=== PATIENT | female | born 2000 | race Caucasian/White ===

== ENCOUNTER 2024-06-17 08:02 | Outpatient (CLI) | payer BC, SELFPAY ==
--- NOTE | 2024-06-17 08:15 | CRLHL7_ITS ---
For Patients: As a result of the Century Cures Act, medical imaging exams and procedure reports are released immediately into your electronic medical record. You may view this report before your referring provider. If you have questions, please contact your health care provider. INDICATION: First trimester scan, establish dates. COMPARISON: None. TECHNIQUE: Real-time jovel-scale imaging of the pelvis was performed. FINDINGS: Sonographic imaging demonstrates a single living intrauterine gestation. The embryo demonstrates a regular cardiac rate measuring 157 beats per minute. The embryo`s crown-rump length measurement of 1.6 cm corresponds to a gestational age of 8 weeks 0 days with a sonographic due date of 01/27/2025. There is a normal-appearing yolk sac. There are no gross abnormalities noted within the embryo at this early state of development. The gestational sac has a normal appearance. There is no evidence of a perigestational hemorrhage. The amount of fluid within the sac appears appropriate for gestational age. The cervix is closed. The myometrium appears normal. Simple cyst right ovary measures 3.9 x 1.7 x 2.3 cm. Normal left ovary. There are no suspicious fluid collections noted in the cul-de-sac. IMPRESSION: Single living intrauterine with sonographic gestational age 8 weeks 0 days and sonographic due date of 01/27/2025. Simple right ovarian cyst measures 3.9 x 1.7 x 2.3 cm. Dictated by Michael Burgos MD @ 06/17/2024 9:07:54 AM (Electronically Signed)
== END 2024-06-17 08:03 | disposition home or self-care (01) ==
LOC: US 08:02
PROVIDERS: Visit Provider Registered Nurse
DX: Z34.91 Encounter for supervision of normal pregnancy, unspecified, first trimester (principal); Z3A.01 Less than 8 weeks gestation of pregnancy
CPT/HCPCS: 76817; 86592; 86703; 86704; 86706; 86762; 86787; 86803; 86850; 86900; 86901; 87086; 87340; 87491; 87591

== ENCOUNTER 2024-08-19 16:59 | Emergency (ER) | payer BC, SELFPAY ==
[2024-08-19 17:17] VITALS: BP 101/69; PULSE 71; RESP 18; TEMP 36.6; O2SAT 100; BMI 19.9
[2024-08-19 17:30] LABS: Appearance Urine Clear (Clear); Bilirubin Urine Negative (Negative); Blood Urine Negative (Negative); Color Urine Light yellow (Yellow); Glucose Urine Negative (Negative); Ketones Urine Negative (Negative); Leukocyte Esterase Urine Negative (Negative); Nitrite Urine Negative (Negative); Protein Urine Negative (Negative); Specific Gravity Urine <= 1.005 (1.000-1.030); Urobilinogen Urine 0.2 (0.2-1.0); pH Urine 6.5 (5.0-8.5)
[2024-08-19 17:35] LABS: RBC Urine 0-2 (0-2); Squamous Epithelial Cell Urine Few (None-Few); WBC Urine 0-2 (0-5)
--- NOTE | 2024-08-19 17:47 | ED_ITS ---
HPI - Abdominal Pain General Date Seen: 08/19/24 Chief Complaint: Abdominal Pain Stated Complaint: 16 weeks , lower back/stomach pain Time Seen by Provider: 08/19/24 17:24 Source: patient Mode of arrival: ambulatory Limitations: no limitations History of Present Illness HPI narrative: Patient is a 24-year-old female currently 16 weeks with a normal intrauterine presenting to the emergency department for abdominal pain. She states states she has been not feeling well for the past couple days then notice today she has been having lower abdominal and low back discomfort. Describes as an achy sensation that is constant. Seems worse on her left lower abdomen than the right. Has had no associated fevers or chills. Does feel like she is urinating more frequently was eating and drinking without issues. Denies any dysuria. Has not noticed any vaginal bleeding. Has been having normal bowel movements. Is not having any associated nausea or vomiting. Denies chest pain, shortness of breath, lightheadedness, dizziness, weakness, headache, vision changes. No other concerns noted at this time. Denies having symptoms like this before. No previous abdominal surgeries. No other concerns noted Related Data Home Medications ?Medication ?Instructions ?Recorded ?Confirmed citalopram 30 mg capsule 30 mg PO QDAY 05/31/24 08/10/24 clindamycin phosphate 1 % topical 1 applic topical BID 05/31/24 08/10/24 solution cholecalciferol (vitamin D3) 10 10 mcg PO QDAY 06/17/24 08/10/24 mcg (400 unit) capsule docosahexaenoic acid 200 mg mg PO 06/17/24 08/10/24 capsule ( DHA) albuterol sulfate 2.5 mg/3 mL mg inhalation Q4H PRN wheezing 08/10/24 08/10/24 (0.083 %) solution for nebulization Allergies Allergy/AdvReac Type Severity Reaction Status Date / Time bee venom protein (honey bee) Allergy Severe Anaphylaxis Verified 08/10/24 14:33 Review of Systems Status of ROS Reports: 10 or more systems reviewed and unremarkable except as noted in History and below [facility] Medical History (Updated 08/19/24 @ 19:22 by Lisandro Lennon DO) Depression ?F32.A - Depression, unspecified (ICD-10) Social History (Updated 06/17/24 @ 10:01 by YAYA Vega 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 What is your current living situation?: I presently have a place to live Problems where you live: no known problems In the past 12 months, utilities in danger of being shut off: no In past 12 months, lack of transportation kept you from medical appts, meetings, work, or getting things needed for daily living: no In the past 12 mos, have been you worried that your food would run out before you had money to buy more?: never true In the past 12 mos, the food you bought just didn't last and you didn't have money to buy more?: never true Smoking Status: Never smoker How often do you have a drink containing alcohol: never AUDIT-C Alcohol total score: 0 Non-prescribed substance use: denies use How often does anyone, including family, friends and others, physically hurt you : never How often does anyone, including family, friends and others, insult or talk down to you: never How often does anyone, including family, friends and others, threaten you with harm: never How often does anyone, including family, friends and others, scream or curse at you: never Little interest or pleasure in doing things: not at all Feeling down, depressed, or hopeless: not at all Exam Narrative: Exam Narrative: Const: Well-nourished, Well-developed, in mild distress Eyes: PERRL, no conjunctival injection, and symmetrical lids HENT: Atraumatic external nose and ears. Moist mucous membranes. Neck: Symmetric, trachea midline, No thyromegaly. CVS: RRR, No murmurs or gallops. Peripheral pulses 2+ and equal in all extremities RESP: Unlabored respiratory effort. Clear to auscultation bilaterally. GI: Mild lower abdominal tenderness across the abdomen, Nondistended, No rebound or guarding. MSK:Extremities w/o deformity, Normal Active ROM Skin: Warm, Dry. No rashes or lesions. Neuro: Normal Muscle tone, No focal neurological deficits. Psych: Awake, Alert, & Oriented x3. Appropriate mood and affect. Const: Vital Signs, click to edit/add: Vital Signs - 24 hr 08/19/24 17:17 Temperature 97.8 F Pulse Rate [Pulse Oximeter] 71 Respiratory Rate 18 Blood Pressure [Ri ght Upper Arm] 101/69 Pulse Oximetry 100 Oxygen Delivery Me thod Room Air Course Vital Signs Vital signs: Initial Vital Signs Temperature 97.8 F 08/19/24 17:17 Temperature Source Temporal Artery Scan 08/19/24 17:17 Pulse Rate 71 08/19/24 17:17 Pulse Rhythm Regular 08/19/24 17:17 Respiratory Rate 18 08/19/24 17:17 Blood Pressure 101/69 08/19/24 17:17 Blood Pressure Mean 79 08/19/24 17:17 Blood Pressure Position Supine 08/19/24 17:17 Pulse Oximetry 100 08/19/24 17:17 Oxygen Delivery Method Room Air 08/19/24 17:17 Vital Signs Temperature 97.8 F 08/19/24 17:17 Pulse Rate 71 08/19/24 17:17 Respiratory Rate 18 08/19/24 17:17 Blood Pressure 101/69 08/19/24 17:17 Pulse Oximetry 100 08/19/24 17:17 Oxygen Delivery Method Room Air 08/19/24 17:17 Temperature 97.8 F 08/19/24 17:17 Pulse Rate 71 08/19/24 17:17 Respiratory Rate 18 08/19/24 17:17 Blood Pressure 101/69 08/19/24 17:17 Pulse Oximetry 100 08/19/24 17:17 Oxygen Delivery Method Room Air 08/19/24 17:17 MDM - Abdominal Pain MDM Narrative Medical decision making narrative: Patient is 24-year-old female presenting for lower abdominal and low back pain. Symptoms are relatively mild she is not having any nausea or vomiting. Is not having any urinary retention or incontinence. She is otherwise feeling well at this time with no other symptoms other than this pain. Differential could include appendicitis, gastroenteritis, colitis, UTI. Due to location much less likely to be gallbladder disease or pancreatitis. As she is 16 weeks this could also just be some stretching of the ligaments causing her pain. Will hold off any imaging considering the and was do labs initially and re-evaluate after that. Labs will be included CBC, CMP, urinalysis, COVID/flu/RSV. Lab work returned showing no concerning abnormalities. Viral swabs were negative. Unsure exactly was causing her pain at this time but I am not seeing any concerning findings. With the patient he she seems much to young to have diverticulitis and is in pretty minimal pain so ovarian torsion seems unlikely. At this point I am comfortable discharging her home. Symptoms male just be from stretching of the ligaments during her . She is agreeable for this plan a give her return precautions for if symptoms worsen. Lab Data Labs: Lab Results 08/19/24 08/19/24 08/19/24 Range/Units 16:00 17:20 17:50 WBC 8.80 (4.50-11.00) K/uL RBC 3.58 L (4.00-5.20) m/uL Hgb 10.8 L (12.0-16.0) gm/dL Hct 31.5 L (33.0-51.0) % MCV 88 (80-100) fL MCH 30 (26-34) pg MCHC 34 (32-36) gm/dL RDW Coeff of [place] 13.6 (11.5-15.5) % Plt Count 154 (140-440) K/uL Neut % (Auto) 67.1 (42.0-72.0) % Lymph % (Auto) 23.4 (20-44) % [place] % (Auto) 7.2 (0.0-11.0) % Eos % (Auto) 1.7 (0.0-7.0) % Baso % (Auto) 0.3 (0.0-3.0) % Neut # (Auto) 5.90 (1.7-7.0) K/uL Lymph # (Auto) 2.06 (0.90-2.90) K/uL [place] # (Auto) 0.60 (0.00-0.90) K/UL Eos # (Auto) 0.15 (0.00-0.50) K/uL Baso # (Auto) 0.03 (0.00-0.30) K/uL Abs Immat Gran (auto) 0.03 (0.00-0.30) K/uL Imm/Tot Granulo (auto) 0.3 % Sodium 131 L (135-149) mmol/L Potassium 3.6 (3.6-5.1) mmol/L Chloride 100 (96-114) mmol/L Carbon Dioxide 26 (20-32) mmol/L Anion Gap 5 L (7-15) mEq/L BUN 13 (5-24) mg/dL Creatinine 0.5 (0.5-1.5) mg/dL Estimated Creat Clear 167.72 Estimated GFR 134 ml/min Glucose 81 (60-115) mg/dL Calcium 8.8 (8.4-10.6) mg/dL Total Bilirubin 0.4 (0.1-1.5) mg/dL AST 20 (12-35) U/L ALT 12 (4-35) U/L Alkaline Phosphatase 35 L (40-150) U/L Total Protein 6.2 (6.0-8.3) g/dL Albumin 3.6 (3.3-5.0) g/dL Urine Color Light yellow (Yellow) Urine Appearance Clear (Clear) Urine pH 6.5 (5.0-8.5) Ur Specific [place] <= 1.005 (1.000-1.030) Urine Protein Negative (Negative) Urine Glucose (UA) Negative (Negative) Urine Ketones Negative (Negative) Urine Blood Negative (Negative) Urine Nitrite Negative (Negative) Urine Bilirubin Negative (Negative) Urine Urobilinogen 0.2 (0.2-1.0) Ur Leukocyte Esterase Negative (Negative) Urine RBC 0-2 (0-2) Urine WBC 0-2 (0-5) Ur Squamous Epith Cells Few (None-Few) Urine Bacteria None (None) SARS-CoV-2 (PCR) Negative SARS-CoV-2 (Negative) Influenza Type A (PCR) Negative PCR FLU A (Negative) Influenza Type B (PCR) Negative PCR FLU B (Negative) RSV (PCR) Negative PCR RSV (Negative) Discharge Plan Discharge Clinical Impression: Abdominal pain Qualifiers: Abdominal location: lower abdomen, unspecified Qualified Code(s): R10.30 - Lower abdominal pain, unspecified Instructions: Abdominal Pain (ED) Additional Instructions: At this time I cannot say for certain what is causing your pain but lab work is reassuring. If symptoms started getting worse return to emergency department for re-evaluation and possible imaging at that time. Try taking Tylenol for pain Prescriptions: No Action DHA 200 mg capsule PO cholecalciferol (vitamin D3) 10 mcg (400 unit) capsule 10 mcg PO QDAY citalopram 30 mg capsule 30 mg PO QDAY clindamycin phosphate 1 % solution 1 applic topical BID albuterol sulfate 2.5 mg /3 mL (0.083 %) solution for nebulization inhalation Q4H PRN (Reason: wheezing) Follow Up/Referrals: Provider,Not a Local [Primary Care Provider] - Stand Alone Forms: [employer] Info Instructions
[2024-08-19 18:09] LABS: Basophils Absolute Auto 0.03 K/uL (0.00-0.30); Basophils Percent Auto 0.3 % (0.0-3.0); Eosinophils Absolute Auto 0.15 K/uL (0.00-0.50); Eosinophils Percent Auto 1.7 % (0.0-7.0); Hematocrit 31.5 % (33.0-51.0); Hemoglobin* 10.8 gm/dL (12.0-16.0); Immature Granulocytes Abs Auto 0.03 K/uL (0.00-0.30); Immature Granulocytes Pct Auto 0.3 %; Lymphocytes Absolute Auto 2.06 K/uL (0.90-2.90); Lymphocytes Percent Auto 23.4 % (20-44); Mean Corpuscular HGB Conc 34 gm/dL (32-36); Mean Corpuscular Hemoglobin 30 pg (26-34); Mean Corpuscular Volume 88 fL (80-100); Monocytes Percent Auto 7.2 % (0.0-11.0); Neutrophils Percent Auto 67.1 % (42.0-72.0); Platelet Count* 154 K/uL (140-440); RDW Coefficient of Variation % 13.6 % (11.5-15.5); Red Blood Count 3.58 m/uL (4.00-5.20)
[2024-08-19 18:15] LABS: Slide Review Reflex No
[2024-08-19 18:46] LABS: PCR FLU A Negative PCR FLU A (Negative); PCR FLU B Negative PCR FLU B (Negative); PCR RSV Negative PCR RSV (Negative); SARS PCR* Negative SARS-CoV-2 (Negative)
[2024-08-19 19:06] LABS: Albumin* 3.6 g/dL (3.3-5.0)
[2024-08-19 19:07] LABS: Chloride* 100 mmol/L (96-114); Potassium* 3.6 mmol/L (3.6-5.1); Sodium* 131 mmol/L (135-149)
[2024-08-19 19:09] LABS: Anion Gap 5 mEq/L (7-15); Aspartate Amino Transferase* 20 U/L (12-35); Bilirubin Total* 0.4 mg/dL (0.1-1.5); Carbon Dioxide* 26 mmol/L (20-32); Creatinine* 0.5 mg/dL (0.5-1.5); Est. Creatinine Clearance* 167.72; Estimated Glomerular Filt Rate 134 ml/min
[2024-08-19 19:10] LABS: Alanine Aminotransferase* 12 U/L (4-35); Alkaline Phosphatase* 35 U/L (40-150); Blood Urea Nitrogen* 13 mg/dL (5-24); Calcium* 8.8 mg/dL (8.4-10.6); Glucose* 81 mg/dL (60-115); Total Protein* 6.2 g/dL (6.0-8.3)
== END 2024-08-19 19:29 | disposition home or self-care (01) ==
LOC: ED 17:54
PROVIDERS: Emergency Provider Student in an Organized Health Care Education/Training Program
DX: R10.30 Lower abdominal pain, unspecified (principal); Z3A.16 16 weeks gestation of pregnancy
CPT/HCPCS: 36415; 80053; 81001; 85025; 87631; 99282; 99283

== ENCOUNTER 2024-08-25 09:09 | Outpatient (CLI) | payer BC, SELFPAY | END 2024-08-25 09:10 | disposition home or self-care (01) | PROVIDERS: Visit Provider Obstetrics & Gynecology | DX: Z34.92 Encounter for supervision of normal pregnancy, unspecified, second trimester (principal); Z3A.17 17 weeks gestation of pregnancy | CPT/HCPCS: 80048; 84443 ==

== ENCOUNTER 2024-09-07 11:57 | Outpatient (CLI) | payer BC, SELFPAY ==
--- NOTE | 2024-09-07 12:15 | CRLHL7_ITS ---
For Patients: As a result of the Century Cures Act, medical imaging exams and procedure reports are released immediately into your electronic medical record. You may view this report before your referring provider. If you have questions, please contact your health care provider. HISTORY: anatomic survey. COMPARISON: None available of this gestation. TECHNIQUE: Ultrasound examination of the is performed with transabdominal technique. Transvaginal examination of the cervix and inferior placental margin is performed. FINDINGS: A single intrauterine gestation is seen in cephalic presentation with regular cardiac activity at 145 beats per minute. The placenta is posterior and is low lying, with the inferior placental margin located 0.7 centimeters from the internal os. Recommend follow-up ultrasound to exclude a low-lying placenta. The placental grade is 0 and the amniotic fluid volume is normal. Single deepest vertical pocket: Normal at 5.1 cm. Cervical length is normal at 4.5 centimeters with no sign of cervical dilatation. BPD: 4.7 cm 20 weeks 1 day HC: 17.3 cm 19 weeks 6 days AC: 14.8 cm 20 weeks 0 days. Sixty-sixth percentile FL: 3.2 cm 19 weeks 6 days The estimated age by ultrasound is 20 weeks 2 days, with an estimated date of delivery of 01/23/2025. This correlates well with the clinical age of 19 weeks 3 days. The ultrasound ratios are normal. The estimated weight is 320 grams which is at the 77th percentile based on the clinical dates. The anatomic survey demonstrates normal appearing intracranial structures with a normal septum pellucidum and normal cerebellum. The nuchal thickness is normal at 4 mm, and the lateral ventricle is normal in diameter at 5 mm. The upper lip, 4 chamber heart, left and right ventricular outflow tracts, diaphragm, stomach, cord insertion site, 3-vessel cord, kidneys, bladder and spine are normal in appearance. IMPRESSION: 1. Single intrauterine gestation in cephalic presentation with regular cardiac activity. 2. Estimated gestational age is 20 weeks 2 days. 3. The estimated weight is 320 grams which is at the 77th percentile based on the clinical dates. 4. Low-lying posterior placenta. Recommend follow-up ultrasound to exclude a persistent low lying placenta. Dictated by Farshad Mishra MD @ 09/09/2024 12:23:06 PM (Electronically Signed)
== END 2024-09-07 11:58 | disposition home or self-care (01) ==
LOC: US 11:57
PROVIDERS: Visit Provider Obstetrics & Gynecology
DX: Z34.92 Encounter for supervision of normal pregnancy, unspecified, second trimester (principal); Z3A.20 20 weeks gestation of pregnancy
CPT/HCPCS: 76805; 76817

== ENCOUNTER 2024-11-07 08:12 | Outpatient (CLI) | payer BC, SELFPAY ==
--- NOTE | 2024-11-07 08:15 | CRLHL7_ITS ---
For Patients: As a result of the Century Cures Act, medical imaging exams and procedure reports are released immediately into your electronic medical record. You may view this report before your referring provider. If you have questions, please contact your health care provider. OB BPP FOLLOWUP LIMITED, 11/07/2024 COMPARISON: 09/07/2024. CLINICAL HISTORY: Low-lying placenta. TECHNIQUE: Transabdominal. FINDINGS: Cervix: Visualized. Measurement: 3.4 cm. Positioning: Vertex. Amniotic Fluid: 6.1 cm. Placenta Technique: TA. Dopplers Heart Rate: 145 bpm. IMPRESSION: With transvaginal imaging, the posterior placenta is located 2.6 cm from the internal cervical os and the cervix is closed measuring 3.4 cm. Michael Burgos M.D. Diagnostic Radiologist [email or web address] Transcribed: 11:16 am DW/Dictated by: Michael Burgos MD @ 11/07/2024 9:22:00 AM (Electronically Signed)
== END 2024-11-07 08:13 | disposition home or self-care (01) ==
LOC: US 08:13
PROVIDERS: PCP Obstetrics & Gynecology; Visit Provider Obstetrics & Gynecology
DX: O44.40 Low lying placenta NOS or without hemorrhage, unspecified trimester (principal)
CPT/HCPCS: 76816; 76817; 86592; 86850; J2791

== ENCOUNTER 2024-11-20 21:15 | Outpatient (CLI) | payer BC, SELFPAY ==
[2024-11-20 21:37] VITALS: BP 110/61; PULSE 70; TEMP 36.5
--- NOTE | 2024-11-21 00:06 | PC.OBNST ---
NST Note NST Note Start: 11/20/24 21:19 Freq: ONCE Status: Active Protocol: Document 11/21/24 00:03 MMT (Rec: 11/21/24 00:05 MMT No Response) NST Note 1 Para (# of births) 0 EDC 01/29/25 Gestational Age In Weeks & Days 30 Weeks & 1 Days Patient Presented with Complaint(s) of Decreased movement,Other Other Complaints Pt stated she fell at 1900. Pt states she does not have any cramping/ctx, bleeding, or leakage of fluid. Pt did state on the phone prior to coming in that she feels her baby has not been moving as much as usual. Once the pt got here she stated that resolved. Reactive Yes Appropriate for Gestational Age Yes PIOTR Dawn Date 11/21/24 Reactive Yes Appropriate for Gestational Age Yes PIOTR Barcenas RN Date 11/21/24 OB NST charge Yes Complete NST Note via Write Note Yes The provider's electronic signature indicates the NST is reactive/appropriate for gestational age. *Note to provider: If an addendum is required, open the patient's chart and click on the note under the Nurse/Allied Health tab.
== END 2024-11-20 23:10 | disposition home or self-care (01) ==
LOC: OB OUT 21:15 → OB 21:15
PROVIDERS: PCP Obstetrics & Gynecology; Visit Provider Obstetrics & Gynecology
DX: O36.8130 Decreased fetal movements, third trimester, not applicable or unspecified (principal); Z3A.30 30 weeks gestation of pregnancy
CPT/HCPCS: 59025; G0463

== ENCOUNTER 2025-01-03 03:40 | Inpatient (IN) | payer BC, SELFPAY ==
[2025-01-03] VITALS (49 sets, daily range): BP systolic 89–127; BP diastolic 53–81; PULSE 71–113; RESP 16; TEMP 36.8–37.4; O2SAT 96–100; BMI 25.2
[2025-01-03 03:29] LABS: Amnisure Rom* POSITIVE
--- NOTE | 2025-01-03 03:52 | P.OBHP_ITS ---
OB - H&P: HPI Labor/Induction History of Present Illness Time Seen by Provider: 04:14 Date Seen: 01/03/25 Chief Complaint: Eva is a 24 year old 1 para 0 at 36 and 2/7 weeks gestation by LMP with NICANOR of 01/29/2025, who presents with pre term premature rupture of membranes at 1:40 a.m. today on 01/03/2025. [] Chief complaint: maternity : 1 Para: 0 Narrative: Eva Hernandez is a 24 year old female at 36 weeks and 2 days gestation status post PPROM, clear fluid at 01:40am on 01/03/25. GBS status is unknown. GBS collected today. Grossly ruptured on presentation to the Center with (+) Amnisure. Patient reports normal movement. Denies vaginal bleeding. She has started to feel ?some cramping?. Discussed options for augmentation of labor with either expected management, possible oral Cytotec if her Ozuna score is unfavorable and/or the Pitocin. She is afebrile. status is reassuring on monitoring. Specific Issues/Plans G 1 P 0 # Low-lying Posterior placenta 0.7cm on 09/07/2024 - RESOLVED as of 11/07 * 28 week: placental edge 2.6cm from os # Anemia diagnosed at 17 weeks when seen in the ED for dizziness. Hemoglobin 10.8 * Initiated ferrous sulfate every other day * 08/25/2024 TSH 1.030 * 11/07: 11.5 # Anxiety. Stable on Citalopram 30mg. # Simple right ovarian cyst measures 3.9 x 1.7 x 2.3 cm. # Hepatitis B nonimmune reviewed w/ the patient on 07/13/24: Booster Rh negative: Rhogam on 11/07 Flu: [] Covid: Not vaccinated. Recommended. [] Tdap: 12/21/24 History of Present Dating criteria: based on LMP care: good care Ultrasounds: normal 1st trimester US, normal mid trimester US and other (Low- lying placenta that resolved as of 11/07/2024) complications comment: PPROM at 36w2d. Medical complications: none Labs Blood type: 0 (-) negative Rubella: immune RPR/VDLR: nonreactive GBS status: unknown HBsAG: negative Meds Home Medications and Allergies Home Medications ?Medication ?Instructions ?Recorded ?Confirmed ?Type citalopram 30 mg capsule 30 mg PO QDAY 05/31/24 01/03/25 History clindamycin phosphate 1 % topical 1 applic topical BID 05/31/24 01/03/25 History solution docosahexaenoic acid 200 mg mg PO 06/17/24 12/21/24 History capsule ( DHA) albuterol sulfate 2.5 mg/3 mL mg inhalation Q4H PRN wheezing 08/10/24 12/21/24 History (0.083 %) solution for nebulization epinephrine 0.3 mg/0.3 mL 0.3 mg IM ONCE 11/23/24 01/03/25 History injection, auto-injector (EpiPen) Allergies Allergy/AdvReac Type Severity Reaction Status Date / Time bee venom protein (honey bee) Allergy Severe Anaphylaxis Verified 12/21/24 14:53 OB - H&P: Exam Physical Exam: Vital signs: Temp Pulse Resp BP 98.6 F 88 16 127/80 01/03/25 02:33 01/03/25 02:33 01/03/25 02:33 01/03/25 02:33 Narrative: General: Pleasant, , well groomed woman in no acute distress. Vital signs: Included in her medical record. Heart: Regular rate and rhythm without gallop, rub or murmur. Chest: Clear to auscultation bilaterally. Abdomen: Gravid and nontender. EFM: Baseline 130bpm. Accelerations: Present. Decelerations: Absent. Moderate variability. Reactive. Category 1. TOCO: 2 contractions in 15-20 minutes SVE: 1.5cm/90%/0/mid/soft. Ozuna score: 9 Extremities: No pain or edema OB - Problem Based A/P Additional Plan (1) premature rupture of membranes (PPROM) with unknown onset of labor: Status: Acute Plan 1. Admit to labor and delivery. 2. GBS status unknown: Ampicillin for GBS prophylaxis. GBS result pending. 3. Plan for augmentation of labor: expectant management. If labor does not begin spontaneously by 6 hours post ROM (7:40am) then start pitocin. 4. Dr. Lakhani to assume care at 7am today. 5. Blood type: O negative 6. Planning an epidural for labor analgesia.
[2025-01-03] MEDS: LACTATED RINGERS 1000 ML 1,000 ML 125 ML IV (04:05)
[2025-01-03] MEDS: AMPICILLIN 2 GM in 0.9 % SODIUM CHLORIDE Mini-bag 100 ML IVPB (04:08)
[2025-01-03 04:38] LABS: Basophils Percent Auto 0.3 % (0.0-3.0); Eosinophils Percent Auto 1.5 % (0.0-7.0); Hematocrit* 34.8 % (33.0-51.0); Hemoglobin* 11.8 gm/dL (12.0-16.0); Lymphocytes Percent Auto 23.9 % (20-44); Mean Corpuscular HGB Conc 34 gm/dL (32-36); Mean Corpuscular Hemoglobin 30 pg (26-34); Mean Corpuscular Volume 89 fL (80-100); Neutrophils Percent Auto 66.3 % (42.0-72.0); Platelet Count* 185 K/uL (140-440); RDW Coefficient of Variation % 12.7 % (11.5-15.5); Red Blood Count* 3.93 m/uL (4.00-5.20); White Blood Count* 12.94 K/uL (4.50-11.00)
[2025-01-03 04:48] LABS: Slide Review Reflex No
[2025-01-03] MEDS: OXYTOCIN 30 unit/500 ML in NS 30 UNIT/500 ML BAG IVPB (08:34)
[2025-01-03] MEDS: AMPICILLIN 1 GM in 0.9 % SODIUM CHLORIDE Mini-bag 100 ML IVPB ×2 (08:38→14:55)
[2025-01-03] MEDS: hydrOXYzine pamoate 25 MG CAPSULE 100 MG PO (09:05)
[2025-01-03] MEDS: MORPHINE 10 MG/ML inj IM (09:06)
[2025-01-03] MEDS: LACTATED RINGERS 1000 ML 1,000 ML 1125 ML IV (09:49)
[2025-01-03] MEDS: LIDOCAINE 2% (PF) 5 ML VIAL EPIDURAL (11:33)
[2025-01-03] MEDS: ROPIVACAINE 0.2% 100 ml 100 ML 12 MG EPIDURAL (11:34)
--- NOTE | 2025-01-03 11:57 | PM.ANBPRC ---
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 What is your current living situation?: I presently have a place to live Problems where you live: no known problems In the past 12 months, utilities in danger of being shut off: no In past 12 months, lack of transportation kept you from medical appts, meetings, work, or getting things needed for daily living: no In the past 12 mos, have been you worried that your food would run out before you had money to buy more?: never true In the past 12 mos, the food you bought just didn't last and you didn't have money to buy more?: never true Smoking Status: Never smoker How often do you have a drink containing alcohol: never AUDIT-C Alcohol total score: 0 Non-prescribed substance use: denies use How often does anyone, including family, friends and others, physically hurt you: never How often does anyone, including family, friends and others, insult or talk down to you: never How often does anyone, including family, friends and others, threaten you with harm: never How often does anyone, including family, friends and others, scream or curse at you: never Meds Home Medications and Allergies Home Medications ?Medication ?Instructions ?Recorded ?Confirmed ?Type citalopram 30 mg capsule 30 mg PO QDAY 05/31/24 01/03/25 History clindamycin phosphate 1 % topical 1 applic topical BID 05/31/24 01/03/25 History solution docosahexaenoic acid 200 mg mg PO 06/17/24 12/21/24 History capsule ( DHA) albuterol sulfate 2.5 mg/3 mL mg inhalation Q4H PRN wheezing 08/10/24 12/21/24 History (0.083 %) solution for nebulization epinephrine 0.3 mg/0.3 mL 0.3 mg IM ONCE 11/23/24 01/03/25 History injection, auto-injector (EpiPen) Allergies Allergy/AdvReac Type Severity Reaction Status Date / Time bee venom protein (honey bee) Allergy Severe Anaphylaxis Verified 12/21/24 14:53 Results Labs Labs: Laboratory Results - last 24 hr 01/03/25 01/03/25 03:13 04:00 WBC 12.94 H RBC 3.93 L Hgb 11.8 L Hct 34.8 MCV 89 MCH 30 MCHC 34 RDW Coeff of [place] 12.7 Plt Count 185 Neut % (Auto) 66.3 Lymph % (Auto) 23.9 [place] % (Auto) 7.0 Eos % (Auto) 1.5 Baso % (Auto) 0.3 Neut # (Auto) 8.60 H Lymph # (Auto) 3.10 H [place] # (Auto) 0.90 Eos # (Auto) 0.20 Baso # (Auto) 0.00 Abs Immat Gran (auto) 0.10 Imm/Tot Granulo (auto) 1.0 Membrane Rupture POSITIVE Blood Type O Negative Antibody Screen POSITIVE Vital Signs Vital Signs: Last Vital Signs Temp 98.2 F 01/03/25 11:43 Pulse 74 01/03/25 11:45 Resp 16 01/03/25 02:33 BP 107/66 01/03/25 11:45 Pulse Ox 98 01/03/25 11:41 Weight: 77.474 kg Height: 175.26 cm Anesthesia Procedures Epidural Insertion Patient Location: OB Start Time: 11:00 Stop Time: 12:00 Start Date: 01/03/25 Stop Date: 01/03/25 Reason for Block: procedure for pain Patient Position: sitting Performed By: Sivakumar Rose Preanesthetic Checklist: IV checked, risks and benefits discussed, monitors and equipment checked, pre-op evaluation, timeout performed and anesthesia consent Prep: chlorhexidine gluconate Monitoring: blood pressure monitoring, continuous pulse oximetry and heart rate Approach: midline Vertebral Space: lumbar (1-5) Epidural Technique: SALO saline Needle Type: Tuohy needle Injection Technique: continuous catheter Needle gauge: 17 Needle Length (cm): 10 cm Needle Insertion Depth (cm): 6 Catheter Gauge: 19 Catheter Type: multi-orifice Catheter at skin depth (cm): 15 Test Dose Result: negative and lidocaine 1.5% with epinephrine 1 to 200,000
[2025-01-03] MEDS: miSOPROStoL 800 MCG/4 TABLET PR (16:03)
--- NOTE | 2025-01-03 16:30 | W.PM.VAGDEL1 ---
Procedure Delivery date: 01/03/25 Procedure Done: Global Events: Labor < 37 Weeks, Labor Augmentation and Premature Rupture of Membrane Intrapartal Events: Labor Augmentation Delivery augmentation: pitocin Delivery monitor: external FHT Route of delivery: Laceration description: None Anesthesia type: Epidural Narrative: The patient is a 24 year-old admitted on 01/03/25 at 36 and 2/7 weeks gestation due to PPROM. GBS: Unknown. Intrapartum antibiotic administered. Pitocin: Used for augmentation of labor and during 3rd stage management. SROM: 01/03/25 at 0140, with clear fluid Labor onset: 01/03/25 at 0900 Complete: 01/03/25 at 1510 and +2 station. Pushin12/06/24 at 1519 heart tones during second stage were cat II during pushing which variables to 90s bpm. Continues moderate variability throughout with spontaneous recovery after completion of contractions. At 1552 a viable male delivered in vertex OA presentation over intact via spontaneous vaginal delivery. The infant's body was delivered in the usual manner without difficulty. The infant was placed on maternal abdomen. The cord was clamped and cut after a 30-60 second delay. The nose and mouth were bulb suctioned. weight: 6lb 5oz. 8 at 1 minute and 9 at 5 minutes. Shoulder dystocia: No. Nuchal cord: No Placenta delivered spontaneously and complete at 1556 with a 3-vessel cord. Placenta examined and noted to be complete. The cervix and vagina were inspected for lacerations, and none were noted. There was small 2 cm hematoma that was no expanding at the vaginal introitus. Laceration(s): None, repaired with none Complications: None Quantitative blood loss: 150 cc Sponge and needles counts are correct. Mother and infant were stable at the time of this note.
[2025-01-03] MEDS: ACETAMINOPHEN 500 MG TABLET 1000 MG PO (18:24)
[2025-01-04 01:35] LABS: Strep B DNA Probe Negative (Negative)
[2025-01-04 01:48] LABS: Strep B Susceptibility Needed? No
[2025-01-04 03:26] VITALS: BP 109/73; PULSE 66; RESP 16; TEMP 36.6; O2SAT 98
[2025-01-04] MEDS: BENZOCAINE/MENTHOL SPRAY 85 GM AEROSOL 1 APPLIC TOPICAL (04:25)
[2025-01-04 07:28] LABS: Hemoglobin* 10.5 gm/dL (12.0-16.0)
--- NOTE | 2025-01-04 07:42 | PM.OBPNVD1 ---
OB - PN:Subj Subjective Date Seen: 01/04/25 Narrative: vEa is a 24 y.o. G 1 P 1 who was admitted to [facility] & [facility] for PPROM. ?She had a NVD that was complicated by status. The patient feels well. ?The pain is well controlled with current medications. ?She has no new complaints. ?She is not planning to breastfeed. the patient has done well.? Vitals have been stable.? She has remained afebrile.? Has a good appetite, is tolerating a general diet. ?She is voiding without difficulty.? She is passing gas and has not had a bowel movement.? She is ambulating and denies any dizziness.? Has small amount of rubra lochia. She had thought she was going home today but is encouraged to stay with and discharge tomorrow. Problems: none OB - PN: Obj Exam Physical Exam: Vital signs: Temp Pulse Resp BP Pulse Ox O2 Del Method 97.9 F 66 16 109/73 98 Room Air 01/04/25 03:26 01/04/25 03:26 01/04/25 03:26 01/04/25 03:26 01/04/25 03:26 01/04/25 03:26 Narrative: GENERAL APPEARANCE:? normal affect, alert, no distress MOOD:? appropriate CHEST:? clear to auscultation HEART:? regular rate and rhythm ABDOMEN:? soft, non-tender the uterine fundus is At Umbilicus, Midline and is appropriate for the stage of recovery. PERINEUM:?mild edema of the perineum, there is a Perineal Laceration,?that is healing well. EXTREMITIES:? normal and no edema OB - PN: Obj Data Labs Labs: Laboratory Results - last 24 hr 01/03/25 01/04/25 03:13 06:11 Hgb 10.5 L Group B Strep DNA Negative OB - PN: A/P Delivery Assessment and Plan (1) care and examination immediately after delivery: Status: Acute Plan day: 1 Plan: routine care Comments: Anticipate discharge tomorrow Not planning to breastfeed, reviewed what to expect with breast changes and how to allow her milk to dry up Hgb 10.5. ?
[2025-01-04] MEDS: IBUPROFEN 600 MG TABLET PO (08:24)
--- NOTE | 2025-01-04 09:01 | PM.ANPOST ---
Post Anesthesia Note Post Anesthesia Note Patient seen: Inpatient Respiratory Status: adequate Cardiovascular Status: adequate Mental Status: baseline Pain: adequate Temp: baseline Anesthetic awareness: N/A Complications: none Follow care: none
[2025-01-04 09:32] VITALS: BP 112/75; PULSE 90; RESP 16; TEMP 36.7; O2SAT 97
[2025-01-04 12:09] VITALS: BP 110/75; PULSE 72; RESP 16; TEMP 36.8
[2025-01-04 16:08] VITALS: BP 114/76; PULSE 83; RESP 16; TEMP 36.9; O2SAT 97
[2025-01-04 17:41] LABS: Rapid Plasma Reagin (RPR) Non Reactive (Non Reactive)
[2025-01-04 19:56] VITALS: BP 109/70; PULSE 93; RESP 16; TEMP 36.7; O2SAT 97
[2025-01-05 07:45] VITALS: BP 114/77; PULSE 74; RESP 16; TEMP 36.6; O2SAT 98
--- NOTE | 2025-01-05 08:08 | P.DS_ITS ---
DS: Providers Provider Date Seen: 01/05/25 Date of admission: 01/03/25 03:40 Primary care physician: Not a Local Provider Admitting Clinician: Roxana Tay MD Attending Physician on discharge: Tatiana PIRES Date of Discharge: 01/05/25 DS: Diagnosis Discharge Diagnosis (1) care and examination immediately after delivery: Status: Acute Exam Narrative: Exam Narrative: GENERAL APPEARANCE:? normal affect, alert, no distress MOOD:? appropriate CHEST:? clear to auscultation HEART:? regular rate and rhythm ABDOMEN:? soft, non-tender the uterine fundus is 1 cm below Umbilicus, Midline and is appropriate for the stage of recovery. PERINEUM:? deferred. No laceration, minimal discomfort EXTREMITIES:? normal and no edema Const: Vital Signs, click to edit/add: Vital Signs - 24 hr 01/04/25 09:32 01/04/25 12:09 01/04/25 16:08 Temperature 98.1 F 98.2 F 98.5 F Pulse Rate [Pulse Oximeter] 90 72 83 Respiratory Rate 16 16 16 Blood Pressure [Le ft Arm] 112/75 110/75 114/76 Pulse Oximetry 97 97 Oxygen Delivery Me thod Room Air Room Air Room Air 01/04/25 19:56 Temperature 98.0 F Pulse Rate [Pulse Oximeter] 93 Respiratory Rate 16 Blood Pressure [Le ft Arm] 109/70 Pulse Oximetry 97 Oxygen Delivery Me thod OB - DS: Summary Hospital Course Hospital Course: Eva is a 24 y.o. G 1 P 0101 who was admitted to [facility] for PPROM.? She had a NVD that was uncomplicated. The patient feels well.? The pain is well controlled with current medications.? She has no new complaints.? She is bottlefeeding and reports things are going well. the patient has done well.? Vitals have been stable.? She has remained afebrile.? Has a good appetite, is lacie ating a general diet.? She is voiding without difficulty.? She is passing gas and has had a small bowel movement.? She is ambulating and denies any dizziness.? Has small amount of rubra lochia. She is unsure of her plans for prevention.?This can be discussed at her PP visit. ?? Problems: none? ?? plan:? Discharge home with baby.? Follow up in 2 weeks and 6 weeks.? Bottle feeding Hgb 10.5. ? ? Labs WNL or stable with trending? Peripartum Data Infant delivery method: Vaginal Laceration description: None Episiotomy description: None complications: none Gender: Male Infant Discharge Plan: Home Status at Discharge Overall status at discharge: patient is progressing back to baseline Time Spent with Patient Time attestation: Total time spent providing and/or coordinating discharge services: Time spent: Less than 30 minutes Discharge Plan Discharge Disposition: Home, Self-Care Date of Admission: 01/03/25 03:40 Attending Provider on Discharge: Angeline Trevino Primary Care Provider: Provider,Not a Local Condition: Stable Anticipated Discharge Date/Time: 01/05/25 12:00 Discharge Medications: Continued DHA 200 mg capsule 200 mg PO DAILY Patient Comments: Pt states she has not taken it in a month epinephrine [EpiPen] 0.3 mg/0.3 mL auto-injector 0.3 mg IM ONCE Rx Instructions: as a single dose; may repeat once citalopram 30 mg capsule 30 mg PO QDAY clindamycin phosphate 1 % solution 1 applic topical BID albuterol sulfate 2.5 mg /3 mL (0.083 %) solution for nebulization 2.5 mg inhalation Q4H PRN (Reason: wheezing) Discontinued ferrous sulfate [Iron (ferrous sulfate)] 325 mg (65 mg iron) tablet 325 mg PO Q OTHER DAY Qty: 30 8RF Discharge Orders: Discharge Order (Routine); Ordered 01/05/25 Ordered By: Angeline Trevino Patient Education: OB [place] [facility], OB Over the Counter Medication Information, OB Vaginal/Bottle Feeding Additional Instructions: Discharge instructions were reviewed with the patient including signs and symptoms of infection and home going medications Nothing vaginally for 6 weeks: no tampons or intercourse Do not drive while taking narcotic pain medication(s) Off Work or School for 6 weeks Symptoms to report to doctor: * Bleeding that saturates more than one pad per hour * Passing clots larger than the size of a golf ball * Pain not relieved by prescribed medication * Fever above 100.4 degrees Fahrenheit * A foul vaginal odor * Difficulty in emotions, mood, and functions * Thoughts of hurting yourself and/or * Painful, reddened area in your breast * Any drainage, redness, or tenderness in your IV/epidural site * Severe headache that doesn't improve after taking medications * Changes in vision, including temporary loss of vision, blurred vision, and/or light sensitivity * Upper abdominal pain (usually under ribs on the right side) * Decrease in urination or painful, frequent urinating * Chest pain * Shortness of breath * Tenderness or pain with redness and/swelling in the calf(s) of your leg 2-week visit: discuss infant feeding concerns, review control options and screen for anxiety/depression. 6-week visit for an annual exam. consultation services are available to all mothers and babies for the first year after delivery.? To make an appointment, please call [phone]. For pain control of perineum, breast and pelvic pain, take 600 mg Ibuprofen every 6 hours as needed by mouth or 1000 mg acetaminophen (Tylenol) every 6 hours by mouth as needed. You can alternate these so you are taking something every 3 hours as needed. Ice packs can also be used for your breasts. You may also take docusate sodium up to twice daily to soften your stools and help to prevent constipation. You may wean off of it when your stools return to normal.? Activity Level: No strenuous activity and Light activity Discharge Diet: Regular Follow Up Appointments: [facility] [Provider Group] Forms: MyHealth Info Instructions
== END 2025-01-05 11:25 | disposition home or self-care (01) | DRG 560 ==
LOC: OB OUT 03:40 → OB 01-04 08:13
PROVIDERS: Obstetrics & Gynecology; Admitting Provider Obstetrics & Gynecology; Visit Provider Obstetrics & Gynecology
DX: O42.013 Preterm premature rupture of membranes, onset of labor within 24 hours of rupture, third trimester (principal); O62.2 Other uterine inertia; O71.7 Obstetric hematoma of pelvis; O99.02 Anemia complicating childbirth; D64.9 Anemia, unspecified; Z3A.36 36 weeks gestation of pregnancy; Z37.0 Single live birth
CPT/HCPCS: 01967; 36415; 84112; 85018; 85025; 85461; 86592; 86850; 86870; 86880; 86900; 86901; 87081; 87653; 88307; G0463; A9270; J0290; J2270; J2371; J2791; J2795; J7120

== ENCOUNTER 2025-02-28 10:06 | Outpatient (CLI) | payer BC, SELFPAY ==
--- NOTE | 2025-02-28 10:15 | CRLHL7_ITS ---
For Patients: As a result of the Cures Act, medical imaging exams and procedure reports are released immediately into your electronic medical record. You may view this report before your referring provider. If you have questions, please contact your health care provider. RIGHT BREAST ULTRASOUND CLINICAL HISTORY: RIGHT breast brown area on lateral RIGHT nipple. COMPARISON: None. TECHNIQUE: Real-time ultrasound imaging of RIGHT breast with imaging documentation. FINDINGS: Targeted sonogram about the RIGHT nipple performed. No dilated ducts or intraductal nodule. No fluid collection or mass. IMPRESSION: Negative targeted sonogram to the RIGHT subareolar tissues. No suspicious findings. RECOMMENDATIONS: Clinical follow-up. Results and recommendations were discussed with the patient at the time of the exam. A lay language report of this examination will be provided to the patient. BI-RADS Category 2: Benign Dictated by Michael Burgos MD @ 02/28/2025 10:47:24 AM jj/Dictated by: Michael Burgos MD @ 02/28/2025 10:47:00 AM (Electronically Signed)
== END 2025-02-28 10:07 | disposition home or self-care (01) ==
LOC: US 10:06
PROVIDERS: Visit Provider Registered Nurse
DX: N64.9 Disorder of breast, unspecified (principal)
CPT/HCPCS: 76642